=== PATIENT | female | born 1960 | race Caucasian/White ===

== ENCOUNTER 2017-02-17 20:35 | Emergency (ER) | payer OTHER ==
[2017-02-17 20:42] VITALS: BP 138/85; PULSE 82; TEMP 97.7; BMI 30.2
[2017-02-17 20:49] LABS: PH,URINE 5.5 (4.5-8); URINE APPEARANCE Slightly; URINE BILIRUBIN 1+ (NEGATIVE); URINE GLUCOSE (UA) Negative (NEGATIVE); URINE KETONE Negative (NEGATIVE); URINE NITRITE Negative (NEGATIVE); URINE UROBILINOGEN 0.2 (0.2-1.0)
[2017-02-17 20:53] LABS: URINE BLOOD 3+ (NEGATIVE); URINE COLOR YELLOW; URINE LEUK ESTERASE 2+ (NEGATIVE); URINE PROTEIN 2+ (NEGATIVE)
--- NOTE | 2017-02-17 20:55 | PDOC ---
History of Present Illness - General History Source: Patient Exam Limitations: No Limitations - History of Present Illness Initial Comments: 02/17/17 21:04 A portion of this note was documented by scribe services under my direction. I have reviewed the details of the note, within reason, and agree with the documentation. The case summary and management plan written by me. Assessment and plan: This is a 57-year-old female with history of cystitis in the past 2 comes in complaining of urinary frequency and dysuria that began 2 days ago and the got much worse after a long flight. Patient denies any fevers but is complaining of some mild chills and low back pain on the right. Patient' s mature was normal here in the emergency room. Patient given Macrobid and Pyridium here in the emergency room and a prescription for Macrobid was sent to her pharmacy. <Winnie Hillman I - Last Filed: 02/17/17 21:03> - History of Present Illness Initial Comments: 02/17/17 21:00 The patient is a 57 year old female, with a significant past medical history of frequent UTIs, who presents to the emergency department with increased urinary frequency and dysuria for 2 days with mild lower right back pain. The patient states her symptoms started as pressure to her suprapubic region upon urination 2 days ago, however, sat on a 7 hour long flight returning yesterday which she states made it much worse. She reports the mild burning on urination. She denies hematuria. She denies chest pain, shortness of breath, headache and dizziness. She denies fever, chills, nausea, vomit, diarrhea and constipation. PAST MEDICAL HISTORY: UTI PAST SURGICAL HISTORY: no significant history FAMILY HISTORY: no pertinent history SOCIAL HISTORY: Pt lives with family and is employed. MEDICATIONS: reviewed ALLERGIES: As per nursing notes Adult ROS General: No fevers or chills, no weakness, no weight loss HEENT: No change in vision. No sore throat,. No ear pain CardioVascular: No chest pain or shortness of breath Respiratory:No cough, or wheezing. Gastrointestinal: no nausea, vomiting, diarrhea or constipation, No rectal bleeding Genitourinary: (+) dysuria, frequency. no hematuria, Musculoskeletal: No joint or muscle pain or swelling Neurologic: No headache, vertigo, dizziness or loss of consciousness Psychiatric: nor depression Skin: No rashes or easy bruising Endocrine: no increased thirst or abnormal weight change Allergic: no skin or latex allergy All other systems reviewed and normal Adult Exam: GENERAL: The patient is awake, alert, and fully oriented, in no acute distress. HEAD: Normal with no signs of trauma. EYES: Pupils equal, round and reactive to light, extraocular movements intact, sclera anicteric, conjunctiva clear. EXTREMITIES: Normal range of motion, no edema. NEUROLOGICAL: Normal speech, normal gait. PSYCH: Normal mood, normal affect. SKIN: Warm, Dry, normal turgor, no rashes or lesions noted. BACK: (+) mild right low back pain to percussion <Sonali Rosario - Last Filed: 02/17/17 21:11> - General Chief Complaint: Urinary Problem Stated Complaint: BURNING IN URINATION Time Seen by Provider: 02/17/17 20:40 Past History - Suicide/Smoking/Psychosocial Hx Smoking History: Never smoked Have you smoked in the past 12 months: No Hx Alcohol Use: No Drug/Substance Use Hx: No Substance Use Type: None <Winnie Hillman I - Last Filed: 02/17/17 21:03> <Sonali Rosario - Last Filed: 02/17/17 21:11> - Past Medical History Allergies/Adverse Reactions: Allergies Allergy/AdvReac Type Severity Reaction Status Date / Time sulfamethoxazole Allergy Verified 02/17/17 20:47 [From Bactrim] trimethoprim [From Bactrim] Allergy Verified 02/17/17 20:47 Home Medications: Ambulatory Orders Nitrofurantoin Monohyd/M-Cryst [Macrobid -] 100 mg PO BID #14 capsule 10/25/15 Phenazopyridine HCl [Pyridium] 100 mg PO TID #6 tablet 10/25/15 Nitrofurantoin Monohyd/M-Cryst [Macrobid -] 100 mg PO BID #14 capsule 02/17/17 *Physical Exam - Vital Signs Last Vital Signs Temp Pulse Resp BP Pulse Ox 97.7 F 82 20 138/85 99 02/17/17 20:36 02/17/17 20:36 02/17/17 20:36 02/17/17 20:36 02/17/17 20:36 <Winnie Hillman I - Last Filed: 02/17/17 21:03> - Vital Signs Last Vital Signs Temp Pulse Resp BP Pulse Ox 97.7 F 82 20 138/85 99 02/17/17 20:36 02/17/17 20:36 02/17/17 20:36 02/17/17 20:36 02/17/17 20:36 <Sonali Rosario - Last Filed: 02/17/17 21:11> ED Treatment Course - ADDITIONAL ORDERS Additional order review: Laboratory Results 02/17/17 20:45 Urine Color Yellow Urine Appearance Slightly Urine pH 5.5 Ur Specific [place] 1.025 Urine Protein 2+ H Urine Glucose (UA) Negative Urine Ketones Negative Urine Blood 3+ H Urine Nitrite Negative Urine Bilirubin 1+ H Urine Urobilinogen 0.2 Ur Leukocyte Esterase 2+ H <Winnie Hillman I - Last Filed: 02/17/17 21:03> - ADDITIONAL ORDERS Additional order review: Laboratory Results 02/17/17 20:45 Urine Color Yellow Urine Appearance Slightly Urine pH 5.5 Ur Specific [place] 1.025 Urine Protein 2+ H Urine Glucose (UA) Negative Urine Ketones Negative Urine Blood 3+ H Urine Nitrite Negative Urine Bilirubin 1+ H Urine Urobilinogen 0.2 Ur Leukocyte Esterase 2+ H <Sonali Rosario - Last Filed: 02/17/17 21:11> *DC/Admit/Observation/Transfer - Discharge Dispostion Admit: No <Winnie Hillman I - Last Filed: 02/17/17 21:03> - Attestations Scribe Attestion: 02/17/17 21:01 Documentation prepared by Sonali Rosario, acting as medical review coordinator for Winnie Hillman MD <Sonali Rosario - Last Filed: 02/17/17 21:11> Diagnosis at time of Disposition: Cystitis - Discharge Dispostion Disposition: HOME - Prescriptions Prescriptions: Nitrofurantoin Monohyd/M-Cryst [Macrobid -] 100 mg PO BID #14 capsule - Patient Instructions Printed Discharge Instructions: DI for Acute Cystitis Additional Instructions: Get the prescription for the antibiotic filled and take it once twice a day for 7 days. Return to the emergency department immediately with ANY new, persistent or worsening symptoms. Continue any medications as previously prescribed by your physician. You should follow up with your primary doctor as soon as possible regarding today's emergency department visit. . Please make sure your doctor reviews the results of your emergency evaluation. Thank you for coming to the Emergency Department today for your care. It was a pleasure to see you today. Please note that your evaluation is INCOMPLETE until you follow-up with your doctor.
[2017-02-17] MEDS ORDERED: PHENAZOPYRIDINE HCL 100 MG TABLET (FP) PO ONE (21:02)
[2017-02-17] MEDS ORDERED: PHENAZOPYRIDINE HCL 100 MG TABLET (FP) ONE (21:03)
[2017-02-17] MEDS ORDERED: NITROFURANTOIN MACROCRYSTAL 50 MG CAPSULE (FP) ONE (21:03)
[2017-02-17 21:05] LABS: URINE WBC >100 (3-5)
[2017-02-17] MEDS ORDERED: NITROFURANTOIN MACROCRYSTAL 50 MG CAPSULE (FP) PO SCH (21:15)
== END 2017-02-17 21:16 | disposition home or self-care (01) ==
LOC: FER 20:35
DX: N30.90 Cystitis, unspecified without hematuria (principal)
CPT/HCPCS: 81003; 81015; 87086; 87186; 99281-25

== ENCOUNTER 2018-08-26 16:38 | Emergency (ER) | payer OTHER ==
[2018-08-26 16:45] VITALS: BP 138/82; PULSE 83; TEMP 97.8; BMI 29.7
[2018-08-26] MEDS ORDERED: ACETAMINOPHEN 500 MG TABLET (FP) PO ONE (16:57)
[2018-08-26] MEDS ORDERED: LIDOCAINE 5% TOPICAL PATCH TP ONE (16:57)
[2018-08-26] MEDS ORDERED: METHOCARBAMOL 500 MG TABLET ONE (17:01)
[2018-08-26] MEDS ORDERED: ACETAMINOPHEN 500 MG TABLET (FP) ONE (17:01)
[2018-08-26] MEDS ORDERED: LIDOCAINE 5% TOPICAL PATCH ONE (17:01)
[2018-08-26] MEDS ORDERED: METHOCARBAMOL 500 MG TABLET PO ONE (17:02)
--- NOTE | 2018-08-26 17:02 | PDOC ---
History of Present Illness - General Chief Complaint: Back Pain Stated Complaint: BACK PAIN Time Seen by Provider: 08/26/18 16:40 History Source: Patient Exam Limitations: No Limitations - History of Present Illness Initial Comments: 08/26/18 16:59 Pt is a 57yo F with PMH of sciatica presenting to ED with complaints of R back pain that radiates down the R leg x2 weeks. Pt states that she was moving a tire and afterward she started to feel the pain. She has had similar pain in the past but she states this pain is worse. Denies numbness/tingling, saddle anesthesia, loss of bladder/bowel, weakness, abdominal pain, n/v/d, fevers, chills, headaches, ataxia. Has not had back surgery or any trauma to the back. She went to urgent care and was given Rx for PO Toradol which she has taken and helped decrease the pain a little. Has not taken the muscle relaxants. PMD: Power PMH: see hpi PSH: see hpi Meds: none Allergies: Bactrim Past History - Past Medical History Allergies/Adverse Reactions: Allergies Allergy/AdvReac Type Severity Reaction Status Date / Time sulfamethoxazole Allergy Verified 08/26/18 16:40 [From Bactrim] trimethoprim [From Bactrim] Allergy Verified 08/26/18 16:40 Home Medications: Ambulatory Orders [place] 1 cap PO DAILY 08/26/18 [place]-3 Fatty Acids/Fish Oil [Fish Oil 1,000 mg Capsule] 1 each PO DAILY Oxycodone HCl/Acetaminophen [Percocet 5-325 mg Tablet] 1 tab PO Q6H PRN #20 tablet MDD 4 tabs 08/26/18 COPD: No - Suicide/Smoking/Psychosocial Hx Smoking History: Never smoked Have you smoked in the past 12 months: No Information on smoking cessation initiated: No Hx Alcohol Use: No Drug/Substance Use Hx: No Substance Use Type: None Review of Systems - Review of Systems Constitutional: No: Chills, Fever, Weakness HEENTM: No: Symptoms Reported Respiratory: No: Symptoms reported Cardiac (ROS): No: Symptoms Reported ABD/GI: No: Constipated, Diarrhea, Nausea, Vomiting, Abdominal cramping : No: Symptoms Reported Musculoskeletal: Yes: See HPI, Back Pain. No: Joint Pain, Muscle Pain, Muscle Weakness, Neck Pain, Joint Stiffness Integumentary: No: Symptoms Reported Neurological: No: Headache, Numbness, Paresthesia, Tingling, Tremors, Weakness, Ataxia, Dizziness *Physical Exam - Vital Signs Last Vital Signs Temp Pulse Resp BP Pulse Ox 97.8 F 83 18 138/82 99 08/26/18 16:38 08/26/18 16:38 08/26/18 16:38 08/26/18 16:38 08/26/18 16:38 - Physical Exam General Appearance: Yes: Nourished, Appropriately Dressed, Other (pt ambulatory in ED). No: Apparent Distress HEENT: positive: EOMI, DUSTY, Normal ENT Inspection Neck: positive: Trachea midline, Supple Respiratory/Chest: positive: Lungs Clear, Normal Breath Sounds Cardiovascular: positive: Regular Rhythm, Regular Rate Vascular Pulses: Dorsalis-Pedis (R): 2+, Doralis-Pedis (L): 2+ Gastrointestinal/Abdominal: positive: Normal Bowel Sounds, Soft Musculoskeletal: positive: Other (+SLR bilaterally with pain referred to R lower back). negative: CVA Tenderness, Vertebral Tenderness Extremity: positive: Normal Capillary Refill. negative: Pedal Edema, Swelling, Calf Tenderness Integumentary: positive: Normal Color, Dry, Warm Neurologic: positive: delivery driver/supervisor II-XII NML intact, Fully Oriented, Alert, Normal Mood/ Affect, Normal Response, Motor Strength 5/5 Medical Decision Making - Medical Decision Making 08/26/18 17:02 Pt is a 57yo F with PMH of sciatica presenting to ED with complaints of R back pain that radiates down the R leg x2 weeks. Pt states that she was moving a tire and afterward she started to feel the pain. She has had similar pain in the past but she states this pain is worse. Denies numbness/tingling, saddle anesthesia, loss of bladder/bowel, weakness, abdominal pain, n/v/d, fevers, chills, headaches, ataxia. Has not had back surgery or any trauma to the back. She went to urgent care and was given Rx for PO Toradol which she has taken and helped decrease the pain a little. Has not taken the muscle relaxants. Vitals: wnl PE: +SLR bilaterally. no spinal tenderness ddx includes but not limited to msk, spasms, sciatica, cord compression, aaa, ligamentous injury, fracture, malalignment, malignancy low suspicion for cord compression given lack of injury, no neurological symptoms other than pain. -meds I do not think pt needs imaging at this time given pain getting better with toradol and no focal neurological findings. will reassess and refer to spine/ortho 08/26/18 18:51 pt still in pain. percocet given. pt feels better after percocet. rx sent to pharmacy. given referral to ortho/ spine. pt ambulatory and reduced pain. safe for dc home. given return precautions and dc instructions. *DC/Admit/Observation/Transfer Diagnosis at time of Disposition: Back pain Qualifiers: Back pain location: low back pain Chronicity: acute Back pain laterality: right Sciatica presence: with sciatica Sciatica laterality: sciatica of right side Qualified Code(s): M54.41 - Lumbago with sciatica, right side - Discharge Dispostion Disposition: HOME Condition at time of disposition: Improved - Prescriptions Prescriptions: Oxycodone HCl/Acetaminophen [Percocet 5-325 mg Tablet] 1 tab PO Q6H PRN #20 tablet MDD 4 tabs PRN Reason: Severe Pain - Referrals Referrals: Filipe Steve MD [Primary Care Provider] - Meet Rodriguez MD [Staff Physician] - - Patient Instructions Printed Discharge Instructions: DI for Low Back Pain Additional Instructions: You were seen in the emergency room today for back pain. This could be caused by a slipped disc causing sciatica or muscle spasms. I recommend taking the muscle relaxant as directed. I also recommend making an appointment with a specialist. Information is provided below. You can use heating pads for the pain as well. Do not lift heavy objects. Come back to the emergency room if pain gets worse, you are unable to walk, you have difficulty with urination or having bowel movements, you have numbness in the legs or groin area or if any new concerning symptom develops. Thank you - Post Discharge Activity
--- NOTE | 2018-08-26 17:08 | PDOC ---
Attending Attestation - Resident Resident Name: Sonia Guzman - ED Attending Attestation I have performed the following: I have examined & evaluated the patient, The case was reviewed & discussed with the resident, I agree w/resident's findings & plan, Exceptions are as noted - HPI HPI: 57 yo F history sciatica presents with R back pain radiating down the R leg for the past 2 weeks, started after she was moving a heavy tire. She has had pain in the same location in the past, but it was self-limited. This is severe and ongoing. She was prescribed toradol adn a muscle relaxer at an urgent care. She states she had relief with toradol, but did not try the muscle relaxer. She has not followed up with a specialist since this started. - Physicial Exam PE: GENERAL: Awake, alert, and fully oriented, in no acute distress HEAD: No signs of trauma EYES: PERRLA, EOMI, sclera anicteric, conjunctiva clear ENT: Auricles normal inspection, hearing grossly normal, nares patent, oropharynx clear without exudates. Moist mucosa NECK: Normal ROM, supple, no lymphadenopathy, JVD, or masses LUNGS: Breath sounds equal, clear to auscultation bilaterally. No wheezes, and no crackles HEART: Regular rate and rhythm, normal S1 and S2, no murmurs, rubs or gallops ABDOMEN: Soft, nontender, normoactive bowel sounds. No guarding, no rebound. No masses EXTREMITIES: Normal range of motion, no edema. No clubbing or cyanosis. No cords, erythema, or tenderness NEUROLOGICAL: Cranial nerves II through XII grossly intact. Normal speech. Motor and sensation intact. +Antalgic gait SKIN: Warm, Dry, normal turgor, no rashes or lesions noted. SPINE: No midline tenderness, no stepoffs. - Medical Decision Making Pt with symptoms of sciatica, likely exacerbated by moving the heavy tire. She states she has not been resting enough since the injury. Recommended that she take the muscle relaxer as prescribed, as it may help. Also recommended f/u with spinal specialist, considering it has not significantly improved in the past 2 weeks.
[2018-08-26] MEDS ORDERED: METHOCARBAMOL 500 MG TABLET PO SCH (22:00)
[2018-08-26] MEDS ORDERED: LIDOCAINE PATCH REMOVAL MC SCH (22:00)
== END 2018-08-26 18:45 | disposition home or self-care (01) ==
LOC: FER 16:38
DX: M54.41 Lumbago with sciatica, right side (principal)
CPT/HCPCS: 99283-25